=== PATIENT | male | born 1990 | race African-American/Black ===

== ENCOUNTER 2017-06-11 09:48 | Emergency (ER) | payer OTHER ==
[~2017-06-11] VITALS: Ht 167.6 cm; Wt 59.0 kg
--- NOTE | ~2017-06-11 | CR94 ---
[facility] A Service of [facility] RADIOLOGY TEXT RESULTS PATIENT: MICHAEL FLETCHER LOCATION: [place] : [birth year] UNIT #: [id number] AGE: [address]: Isaac Harvey MD SEX: M ORDER DR: [id number] [facility] [address] [place], [place] [address] [id number] MR#: [id number] Acc #: [id number] NAME: MICHAEL FLETCHER : 1990 SEX: M STUDY DATE/TIME: 06/11/2017 10:16 UNIT: [place] ROOM: STUDY DESCRIPTION: CR Elbow Min 3 Views Rt Attending Physician: Isaac Harvey M.D. Ordering Physician: Isaac Harvey M.D. Primary Care Physician: Miah Licona M.D. MEDICAL IMAGING REPORT This report is preliminary unless electronic signature is present EXAM Right elbow. HISTORY Elbow pain onset today. Intravenous drug use. TECHNIQUE 3 views of the elbow were obtained. COMPARISON Compared with 06/30/2015. FINDINGS Soft tissue swelling is seen along the medial aspect of the elbow. There is a broken off needle fragment noted adjacent to the medial humeral epicondyle. The elbow joint itself is unremarkable and no destructive bone lesions or erosions are seen. The needle fragment is approximately 8 mm in length. No elbow joint effusion is noted. IMPRESSION There is a broken off needle fragment seen just medial to the medial humeral epicondyle measuring about 8 mm in length, new since the previous elbow examination. There is adjacent soft tissue swelling. The joint itself is unremarkable. Dictated by... Raymond Ireland M.D. THIS IS AN ELECTRONICALLY VERIFIED REPORT Raymond Ireland M.D. at 06/11/2017 4:50 PM RLF/gz TD: 06/11/2017 14:54 [facility] A Service [facility] RADIOLOGY TEXT RESULTS PATIENT: MICHAEL FLETCHER LOCATION: [place] : 92 UNIT #: [id number] AGE: [address]: Isaac Harvey MD SEX: M ORDER DR: JOB #: [id number] MEDICAL IMAGING REPORT Page 1 of 1 COPY
[~2017-06-11 09:48] MED LIST: ACETAMINOPHEN650 M1 PO; AMITRYPTYLINE PO; ATIVAN PO; AZITHROMYCIN250 MG PO; DEPAKOTE ER PO; DEPAKOTE PO; DEPAKOTE250 MG PO; DILANTIN PO; FLEXERIL10 MG PO; HYDROCODON-ACE1 EAC5 PO; HYDROCODON-ACE1 EAC7 PO; IBUPROFEN800 MG PO; IMITREX PO; KEPPRA500 M1 PO; KEPPRA500 M2 PO; KEPPRA500 MG PO; KLONOPIN1 MG PO; LOPRESSOR PO; LORATADINE PO; MEDROL DOSEPAK4 MG PO; NAPROXEN PO; NAPROXEN500 M1 PO; NO MEDICATIONS; ORUDIS75 M1 PO; ROBAXIN 750750 MG PO; SKELAXIN PO; VOLTAREN50 MG PO; ZOFRAN SL
== END 2017-06-11 11:03 | disposition home or self-care (01) ==
LOC: CED 09:48
DX: L02.413 Cutaneous abscess of right upper limb (principal); Z23 Encounter for immunization; F17.200 Nicotine dependence, unspecified, uncomplicated; Z88.0 Allergy status to penicillin; Z91.018 Allergy to other foods
CPT/HCPCS: 73080; 90471; 90715; 99283